=== PATIENT | male | born 1955 | race Caucasian/White ===

== ENCOUNTER 2023-05-17 20:02 | Emergency (ER) | payer MEDICARE, MEDICAID ==
[~2023-05-17] VITALS: Ht 182.9 cm; Wt 120.0 kg
[2023-05-17 20:08] VITALS: TEMP 98.3; O2SAT 96
[2023-05-17] MEDS ORDERED: TETANUS, DIPHTHERIA, PERTUSSIS VAC/PF 0.5ML (>10YR OLD) IM ONE (20:30)
[2023-05-17] MEDS: LIDOCAINE HCL/PF 1% 10 MG/ML 5ML VIAL INFIL ONE (20:30)
[2023-05-17] MEDS: TETANUS, DIPHTHERIA, PERTUSSIS VAC/PF 0.5ML (>10YR OLD) IM ONE (22:47)
[2023-05-17 22:48] VITALS: BP 160/80; PULSE 63; RESP 18
== END 2023-05-18 03:36 ==
LOC: ER 20:02
DX: S91.115A Laceration without foreign body of left lesser toe(s) without damage to nail, initial encounter (principal); D64.9 Anemia, unspecified; J44.9 Chronic obstructive pulmonary disease, unspecified; E11.9 Type 2 diabetes mellitus without complications; K21.9 Gastro-esophageal reflux disease without esophagitis; I10 Essential (primary) hypertension; Z88.0 Allergy status to penicillin; X58.XXXA Exposure to other specified factors, initial encounter; Y93.89 Activity, other specified; Y92.89 Other specified places as the place of occurrence of the external cause; Y99.8 Other external cause status
CPT/HCPCS: 99283; 90715; 12001; 90471; J3490

== ENCOUNTER 2023-05-20 12:24 | Emergency (ER) | payer MEDICARE, MEDICAID ==
[~2023-05-20] VITALS: Ht 180.3 cm; Wt 91.0 kg
[2023-05-20 12:29] VITALS: O2SAT 95
[2023-05-20] MEDS: LIDOCAINE HCL/EPINEPHRINE 1%-EPI 1:100,000 20 ML VIAL INFIL ONE (13:29)
[2023-05-20] MEDS ORDERED: CEPH500T MT (14:19)
[2023-05-20 17:28] VITALS: BP 143/77; PULSE 71; RESP 16; TEMP 97.9
== END 2023-05-20 17:38 | disposition home or self-care (01) ==
LOC: ER 12:24
DX: S91.119A Laceration without foreign body of unspecified toe without damage to nail, initial encounter (principal); I10 Essential (primary) hypertension; E11.9 Type 2 diabetes mellitus without complications; J44.1 Chronic obstructive pulmonary disease with (acute) exacerbation; Z88.0 Allergy status to penicillin; X58.XXXA Exposure to other specified factors, initial encounter; Y93.89 Activity, other specified; Y92.89 Other specified places as the place of occurrence of the external cause; Y99.8 Other external cause status
CPT/HCPCS: 99283; 12001; J3490